=== PATIENT | male | born 1935 | race American Indian/Alaskan Native ===

== ENCOUNTER 2021-10-13 16:14 | Inpatient (IN) | payer MEDICARE ==
--- NOTE | 2021-10-13 18:19 | XRay Report ---
CHEST 2 VIEWS INDICATION / CLINICAL INFORMATION: Chest Pain. COMPARISON: None available. FINDINGS: SUPPORT DEVICES: None. HEART / MEDIASTINUM: No significant abnormality. LUNGS / PLEURA: Mild increased interstitial markings bilaterally may be chronic. No consolidation or effusion. No pneumothorax. ADDITIONAL FINDINGS: There is elevation of the left hemidiaphragm. IMPRESSION: 1. Mild increased interstitial markings within both lungs may be chronic. 2. Elevation of the left hemidiaphragm. Signer Name: Osvaldo Valdez MD Signed: 10/13/2021 6:15 PM Workstation Name: [email or web address]
[2021-10-13 18:54] LABS: Basophils % (Auto) 0.3 % (0.0-1.8); Eosinophils # (Auto) 0.3 K/mm3 (0.0-0.4); Eosinophils % (Auto) 3.5 % (0.0-4.3); Hematocrit 32.9 % (35.5-45.6); Hemoglobin 10.7 gm/dl (11.8-15.2); Lymphocytes # (Auto) 1.8 K/mm3 (1.2-5.4); Lymphocytes % (Auto) 21.1 % (13.4-35.0); Mean Corpuscular HGB Conc 33 % (32-34); Mean Corpuscular Volume 90 fl (84-94); Monocytes % (Auto) 11.2 % (0.0-7.3); Platelet Count 206 K/mm3 (140-440); Red Blood Count 3.66 M/mm3 (3.65-5.03); Red Cell Distribution Width 16.1 % (13.2-15.2)
[2021-10-13 19:03] LABS: INR 0.95 (0.87-1.13)
[2021-10-13 19:05] LABS: Partial Thromboplastin Time 33.9 Sec. (24.2-36.6)
[2021-10-13 19:17] LABS: Albumin 4.6 g/dL (3.9-5); Calcium 10.4 mg/dL (8.4-10.2)
[2021-10-13 19:30] LABS: Chol/HDL Ratio 3.28 %
[2021-10-14] MEDS ORDERED: hydrALAZINE 20 MG/1 ML INJ IV ONE (14:17)
[2021-10-14] MEDS ORDERED: MORPHINE 4 MG/1 ML INJ IV ONE (14:17)
[2021-10-14] MEDS ORDERED: ONDANSETRON 4 MG/2 ML INJ IV ONE (14:17)
--- NOTE | 2021-10-14 14:20 | Emergency Department Report ---
ED General Adult HPI - General Chief complaint: Chest Pain Stated complaint: Abdominal cramping and discomfort Time Seen by Provider: 10/14/21 14:09 Source: patient, RN notes reviewed Mode of arrival: Ambulatory Limitations: No Limitations - History of Present Illness Initial comments: The patient was evaluated in the emergency department for symptoms described in the history of present illness. He/she was evaluated in the context of the global COVID-19 pandemic, which necessitated consideration that the patient might be at risk for infection with the virus that causes COVID-19. Institutional protocols and algorithms that pertain to the evaluation of patients at risk for COVID-19 are in a state of rapid change based on information released by regulatory bodies including the CDC and federal and state organizations. These policies and algorithms were followed during the patient's care in the emergency department. Please note that these policies, procedures and recommendations changed on a rapid basis. Past medical history: Obesity, hypertension, end-stage renal disease on hemodialysis, Monday, , Monday. Last received dialysis on Monday. The patient is a pleasant and cooperative 86-year-old gentleman, who presents to the department today with a complaint of nonspecific abdominal distention, cramping, malaise, weakness, fatigue, and headache. No neck pain. No chest pain. No vomiting or diarrhea. No testicular pain. No urinary symptoms. His rand butter is Dr. Chery. No history of abdominal surgeries that he is aware of. His abdominal cramping is diffuse -: Gradual, days(s) Location: head Radiation: abdomen Quality: aching Improves with: none Worsens with: none - Related Data Allergies Allergy/AdvReac Type Severity Reaction Status Date / Time No Known Allergies Allergy Unverified 10/13/21 17:27 ED Review of Systems ROS: Stated complaint: BLURRY VISION/SWOLLEN ABD/DIZZY Other details as noted in HPI Constitutional: malaise. denies: fever Eyes: denies: eye discharge ENT: denies: epistaxis Respiratory: denies: wheezing Cardiovascular: denies: chest pain Gastrointestinal: abdominal pain. denies: nausea, vomiting, hematemesis, melena, hematochezia Genitourinary: denies: dysuria Neurological: headache. denies: weakness ED Past Medical Hx - Past Medical History Previous Medical History?: Yes Hx Hypertension: Yes - Surgical History Past Surgical History?: No ED Physical Exam - General Limitations: No Limitations General appearance: alert, in no apparent distress, obese - Head Head exam: Present: atraumatic, normocephalic - Eye Eye exam: Present: normal appearance, EOMI. Absent: nystagmus - ENT ENT exam: Present: normal exam, normal orophraynx, mucous membranes moist, normal external ear exam - Neck Neck exam: Present: normal inspection, full ROM. Absent: tenderness, meningismus - Respiratory Respiratory exam: Present: decreased breath sounds. Absent: respiratory distress, wheezes, rales, rhonchi, stridor - Cardiovascular Cardiovascular Exam: Present: regular rate, normal rhythm, normal heart sounds. Absent: bradycardia, tachycardia, irregular rhythm, systolic murmur, diastolic murmur, rubs, gallop - GI/Abdominal GI/Abdominal exam: Present: soft, distended. Absent: tenderness, guarding, rebound, rigid, pulsatile mass - Rectal Rectal exam: Present: deferred - Extremities Exam Extremities exam: Present: normal inspection (Left upper extremity fistula, appropriate thrill, no redness, pus or streaking), full ROM, pedal edema, other (2+ pulses noted in the bilateral upper and lower extremities. There is no palpable cord. negative Homans sign. Muscular compartments are soft. The pelvis is stable.). Absent: calf tenderness - Back Exam Back exam: Present: normal inspection, full ROM. Absent: tenderness, CVA te nderness (R), CVA tenderness (L), paraspinal tenderness, vertebral tenderness - Neurological Exam Neurological exam: Present: alert, oriented X3, normal gait, other (No facial droop. Tongue midline. Extraocular movements intact bilaterally. Facial sensation intact to light touch in V1, V2, V3 distribution bilaterally. 5 and a 5 strength in 4 extremities. Sensation intact to light touch in 4 extremities.). Absent: motor sensory deficit - Psychiatric Psychiatric exam: Present: normal affect, normal mood - Skin Skin exam: Present: warm, dry, intact, normal color. Absent: rash ED Course Vital Signs 10/13/21 17:24 Temperature 98.5 F Pulse Rate 77 Respiratory 18 Rate Blood Pressure 173/84 [Left] O2 Sat by Pulse 99 Oximetry ED Medical Decision Making - Lab Data Result diagrams: 10/13/21 18:12 10/14/21 14:44 Vital Signs 10/13/21 17:24 Temperature 98.5 F Pulse Rate 77 Respiratory 18 Rate Blood Pressure 173/84 [Left] O2 Sat by Pulse 99 Oximetry Lab Results 10/13/21 10/13/21 10/13/21 Range/Units 18:12 18:12 18:12 WBC 8.7 (4.5-11.0) K/mm3 RBC 3.66 (3.65-5.03) M/mm3 Hgb 10.7 L (11.8-15.2) gm/dl Hct 32.9 L (35.5-45.6) % MCV 90 (84-94) fl MCH 29 (28-32) pg MCHC 33 (32-34) % RDW 16.1 H (13.2-15.2) % Plt Count 206 (140-440) K/mm3 Lymph % (Auto) 21.1 (13.4-35.0) % Sanborn % (Auto) 11.2 H (0.0-7.3) % Eos % (Auto) 3.5 (0.0-4.3) % Baso % (Auto) 0.3 (0.0-1.8) % Lymph # (Auto) 1.8 (1.2-5.4) K/mm3 Sanborn # (Auto) 1.0 H (0.0-0.8) K/mm3 Eos # (Auto) 0.3 (0.0-0.4) K/mm3 Baso # (Auto) 0.0 (0.0-0.1) K/mm3 Seg Neutrophils % 63.9 (40.0-70.0) % Seg Neutrophils # 5.6 (1.8-7.7) K/mm3 PT 13.7 (12.2-14.9) Sec. INR 0.95 (0.87-1.13) APTT 33.9 (24.2-36.6) Sec. Sodium 141 (137-145) mmol/L Potassium 4.0 (3.6-5.0) mmol/L Chloride 99.2 (98-107) mmol/L Carbon Dioxide 26 (22-30) mmol/L Anion Gap 20 mmol/L BUN 39 H (9-20) mg/dL Creatinine 7.4 H (0.8-1.3) mg/dL Estimated GFR 9 ml/min BUN/Creatinine Ratio 5 % Glucose 99 (75-100) mg/dL Calcium 10.4 H (8.4-10.2) mg/dL Total Bilirubin 0.30 (0.1-1.2) mg/dL AST 20 (5-40) units/L ALT 12 (7-56) units/L Alkaline Phosphatase 125 (35-129) units/L Troponin T 0.042 H (0.00-0.029) ng/mL Total Protein 6.8 (6.3-8.2) g/dL Albumin 4.6 (3.9-5) g/dL Albumin/Globulin Ratio 2.1 % Triglycerides 131 (2-149) mg/dL Cholesterol 92 (50-199) mg/dL LDL Cholesterol Direct 35 L (50-130) mg/dL HDL Cholesterol 28 L (40-59) mg/dL Cholesterol/HDL Ratio 3.28 % 10/14/21 Range/Units 14:44 WBC (4.5-11.0) K/mm3 RBC (3.65-5.03) M/mm3 Hgb (11.8-15.2) gm/dl Hct (35.5-45.6) % MCV (84-94) fl MCH (28-32) pg MCHC (32-34) % RDW (13.2-15.2) % Plt Count (140-440) K/mm3 Lymph % (Auto) (13.4-35.0) % Sanborn % (Auto) (0.0-7.3) % Eos % (Auto) (0.0-4.3) % Baso % (Auto) (0.0-1.8) % Lymph # (Auto) (1.2-5.4) K/mm3 Sanborn # (Auto) (0.0-0.8) K/mm3 Eos # (Auto) (0.0-0.4) K/mm3 Baso # (Auto) (0.0-0.1) K/mm3 Seg Neutrophils % (40.0-70.0) % Seg Neutrophils # (1.8-7.7) K/mm3 PT (12.2-14.9) Sec. INR (0.87-1.13) APTT (24.2-36.6) Sec. Sodium 140 (137-145) mmol/L Potassium 3.9 (3.6-5.0) mmol/L Chloride 97.6 L (98-107) mmol/L Carbon Dioxide 26 (22-30) mmol/L Anion Gap 20 mmol/L BUN 50 H (9-20) mg/dL Creatinine 7.9 H (0.8-1.3) mg/dL Estimated GFR 8 ml/min BUN/Creatinine Ratio 6 % Glucose 146 H (75-100) mg/dL Calcium 10.1 (8.4-10.2) mg/dL Total Bilirubin (0.1-1.2) mg/dL AST (5-40) units/L ALT (7-56) units/L Alkaline Phosphatase (35-129) units/L Troponin T (0.00-0.029) ng/mL Total Protein (6.3-8.2) g/dL Albumin (3.9-5) g/dL Albumin/Globulin Ratio % Triglycerides (2-149) mg/dL Cholesterol (50-199) mg/dL LDL Cholesterol Direct (50-130) mg/dL HDL Cholesterol (40-59) mg/dL Cholesterol/HDL Ratio % - EKG Data CT head/brain wo con INDICATION: Nonspecific headache and hypertension. TECHNIQUE: CT head. All CT scans at this location are performed using CT dose reduction for ALARA by means of automated exposure control. COMPARISON: None. FINDINGS: Intracranial: Almeida-white matter differentiation is maintained. No intracranial hemorrhage. No extra axial collection. No hydrocephalus. No herniation. Sinuses: Paranasal sinuses and mastoid air cells are essentially clear. Orbits: Globes are intact. Calvarium: No acute fracture. IMPRESSION: 1. No acute intracranial abnormality. Signer Name: Ancelmo Mistry MD Signed: 10/14/2021 2:40 PM Workstation Name: [id number] 10/14/21 18:09 CHEST 2 VIEWS INDICATION / CLINICAL INFORMATION: Chest Pain. COMPARISON: None available. FINDINGS: SUPPORT DEVICES: None. HEART / MEDIASTINUM: No significant abnormality. LUNGS / PLEURA: Mild increased interstitial markings bilaterally may be chronic. No consolidation or effusion. No pneumothorax. ADDITIONAL FINDINGS: There is elevation of the left hemidiaphragm. IMPRESSION: 1. Mild increased interstitial markings within both lungs may be chronic. 2. Elevation of the left hemidiaphragm. Signer Name: Osvaldo Valdez MD Signed: 10/13/2021 5:15 PM Workstation Name: [id number] CT ABDOMEN AND PELVIS WITH CONTRAST INDICATION / CLINICAL INFORMATION: Acute abdominal pain. TECHNIQUE: Axial CT images were obtained through the abdomen and pelvis after IV contrast. All CT scans at this location are performed using CT dose reduction for ALARA by means of automated exposure control. COMPARISON: None available. FINDINGS: LOWER CHEST: Marked elevation of the left hemidiaphragm. Right basilar tree-in-bud opacities are partially visualized which may be due to pneumonia and/or aspiration. LIVER: No significant abnormality. GALLBLADDER: Cholelithiasis within a minimally distended gallb ladder. BILE DUCTS: No significant abnormality. PANCREAS: No significant abnormality. SPLEEN: Incompletely visualized. ADRENALS: Mild enlargement of the left adrenal gland. The right adrenal gland is normal. RIGHT KIDNEY / URETER: A 3.5 x 3.5 x 4.4 cm lesion is seen within the interpolar right kidney which measures at the upper limits of the expected density of a simple cyst. Additional small simple cysts are seen throughout the right kidney. No hydronephrosis. LEFT KIDNEY / URETER: 1.8 x 1.4 x 2.3 cm exophytic mass arising from the posterior interpolar left kidney, concerning for renal cell carcinoma. An additional concerning solid masses seen within the inferior pole of the left kidney measuring 3.1 x 2.7 x 3.0 cm. An additional hypodense lesion measuring up to 4.1 cm arises from the superior aspect of the left kidney and measures to be above the density expected of a simple cyst. Additional simple appearing cysts are scattered throughout the left kidney. No hydronephrosis. STOMACH / SMALL BOWEL: The stomach is incompletely visualized due to left hemidiaphragm elevation. COLON: The splenic flexure colon is incompletely visualized due to marked left hemidiaphragm elevation. APPENDIX: No significant abnormality. PERITONEUM: Trace free fluid within the pelvis, of uncertain etiology. No free air. No fluid collection. LYMPH NODES: No significant adenopathy. AORTA / ARTERIES: Moderate atherosclerotic calcification without acute abnormality. IVC / VEINS: No significant abnormality. URINARY BLADDER: No significant abnormality. REPRODUCTIVE ORGANS: No significant abnormality. ADDITIONAL FINDINGS: None. SKELETAL SYSTEM: Multilevel degenerative changes of the spine. IMPRESSION: 1. Multiple solid left renal masses measuring up to 3.1 cm which are concerning for renal cell carcinoma. Multiple indeterminate hypodense lesions which are above the expected densities of simple cysts are seen within the bilateral kidneys as well. Further evaluation with dedicated renal mass MRI is recommended. 2. Cholelithiasis. 3. Marked elevation of the left hemidiaphragm resulting in incomplete visualization of the spleen, splenic flexure colon, and stomach. 4. Tree-in-bud opacities within the right lower lobe of the lung may be related to pneumonia and/or aspiration. 5. No acute intra-abdominal or pelvic abnormality. Signer Name: Jackson Rosas MD Signed: 10/14/2021 2:56 PM Worksta tion Name: [id number] - Radiology Data Radiology results: pending, report reviewed, image reviewed curb 6 score 2 points Moderate risk group: 6.8% 30-day mortality. Consider inpatient treatment or outpatient with close followup. - Medical Decision Making Differential diagnosis, including but not limited to: Migraine headache, tension headache, cluster headache, end-stage renal disease on hemodialysis, missed dialysis, hypertensive urgency, colitis, diverticulitis, perforated viscus, obstruction, malignancy Assessment and plan: Elderly 86-year-old gentleman complaining of abdominal cramping, with secondary complaint of headache. Given advanced age, obtain CT scan abdomen pelvis. Suggest possible renal cell carcinoma, and right lower lobe pneumonia, possible aspiration. Curb 65 score reviewed and appreciated. Given advanced age, and complaint of headache, obtain CT scan of the brain, which is negative for acute findings. Possible renal cell carcinoma can be followed up as an outpatient. However, patient is a dialysis patient, hypertensive, and has missed his hemodialysis. He also received IV contrast. Contacted nephrology on-call, Dr. Dean. Discussed the patient's history, physical, imaging studies and clinical impression. Nephrology will follow in consultation. Cover empirically with ceftriaxone and azithromycin. Patient agreeable to admission and hospitalization. Endorsed to hospital physician, Dr. Cruz, for further management. Critical care attestation.: If time is entered above; I have spent that time in minutes in the direct care of this critically ill patient, excluding procedure time. ED Disposition Clinical Impression: End stage renal disease on dialysis, Abdominal pain, Hypertensive urgency, Missed dialysis, Headache, Abnormal computed tomography of abdomen and pelvis Disposition: ADMITTED INPATIENT Is pt being admited?: Yes Does the pt Need Aspirin: No Condition: Good
[2021-10-14 15:19] LABS: Calcium 10.1 mg/dL (8.4-10.2)
--- NOTE | 2021-10-14 15:44 | Cat Scan Report ---
CT head/brain wo con INDICATION: Nonspecific headache and hypertension. TECHNIQUE: CT head. All CT scans at this location are performed using CT dose reduction for ALARA by means of automated exposure control. COMPARISON: None. FINDINGS: Intracranial: Almeida-white matter differentiation is maintained. No intracranial hemorrhage. No extra a xial collection. No hydrocephalus. No herniation. Sinuses: Paranasal sinuses and mastoid air cells are essentially clear. Orbits: Globes are intact. Calvarium: No acute fracture. IMPRESSION: 1. No acute intracranial abnormality. Signer Name: Ancelmo Mistry MD Signed: 10/14/2021 3:40 PM Workstation Name: [id number]
--- NOTE | 2021-10-14 16:01 | Cat Scan Report ---
CT ABDOMEN AND PELVIS WITH CONTRAST INDICATION / CLINICAL INFORMATION: Acute abdominal pain. TECHNIQUE: Axial CT images were obtained through the abdomen and pelvis after IV contrast. All CT sc ans at this location are performed using CT dose reduction for ALARA by means of automated exposure c ontrol. COMPARISON: None available. FINDINGS: LOWER CHEST: Marked elevation of the left hemidiaphragm. Right basilar tree-in-bud opacities are part ially visualized which may be due to pneumonia and/or aspiration. LIVER: No significant abnormality. GALLBLADDER: Cholelithiasis within a minimally distended gallbladder. BILE DUCTS: No significant abnormality. PANCREAS: No significant abnormality. SPLEEN: Incompletely visualized. ADRENALS: Mild enlargement of the left adrenal gland. The right adrenal gland is normal. RIGHT KIDNEY / URETER: A 3.5 x 3.5 x 4.4 cm lesion is seen within the interpolar right kidney which m easures at the upper limits of the expected density of a simple cyst. Additional small simple cysts a re seen throughout the right kidney. No hydronephrosis. LEFT KIDNEY / URETER: 1.8 x 1.4 x 2.3 cm exophytic mass arising from the posterior interpolar left ki dney, concerning for renal cell carcinoma. An additional concerning solid masses seen within the infe rior pole of the left kidney measuring 3.1 x 2.7 x 3.0 cm. An additional hypodense lesion measuring u p to 4.1 cm arises from the superior aspect of the left kidney and measures to be above the density e xpected of a simple cyst. Additional simple appearing cysts are scattered throughout the left kidney. No hydronephrosis. STOMACH / SMALL BOWEL: The stomach is incompletely visualized due to left hemidiaphragm elevation. COLON: The splenic flexure colon is incompletely visualized due to marked left hemidiaphragm elevatio n. APPENDIX: No significant abnormality. PERITONEUM: Trace free fluid within the pelvis, of uncertain etiology. No free air. No fluid collecti on. LYMPH NODES: No significant adenopathy. AORTA / ARTERIES: Moderate atherosclerotic calcification without acute abnormality. IVC / VEINS: No significant abnormality. URINARY BLADDER: No significant abnormality. REPRODUCTIVE ORGANS: No significant abnormality. ADDITIONAL FINDINGS: None. SKELETAL SYSTEM: Multilevel degenerative changes of the spine. IMPRESSION: 1. Multiple solid left renal masses measuring up to 3.1 cm which are concerning for renal cell carcin blaise. Multiple indeterminate hypodense lesions which are above the expected densities of simple cysts are seen within the bilateral kidneys as well. Further evaluation with dedicated renal mass MRI is re commended. 2. Cholelithiasis. 3. Marked elevation of the left hemidiaphragm resulting in incomplete visualization of the spleen, sp lenic flexure colon, and stomach. 4. Tree-in-bud opacities within the right lower lobe of the lung may be related to pneumonia and/or a spiration. 5. No acute intra-abdominal or pelvic abnormality. Signer Name: Jackson Rosas MD Signed: 10/14/2021 3:56 PM Workstation Name: [id number]
[2021-10-14] MEDS ORDERED: AZITHROMYCIN/NS 500 MG/250 ML 500 MG/250 ML BAG IV ONE (16:38)
[2021-10-14] MEDS ORDERED: cefTRIAXone/NS 1 GM/50 ML 1 GM/50 ML BAG IV ONE (16:38)
[2021-10-14] MEDS ORDERED: SODIUM CHLORIDE 0.9% 100 ML IV PRN (16:58)
[2021-10-14] MEDS ORDERED: MORPHINE 2 MG/1 ML INJ ONE (17:00)
[2021-10-14] MEDS ORDERED: hydrALAZINE 20 MG/1 ML INJ ONE (17:00)
[2021-10-14] MEDS ORDERED: ONDANSETRON 4 MG/2 ML INJ ONE (17:00)
--- NOTE | 2021-10-14 17:05 | Event Note ---
Discussed with ER , Will order fro HD tomorrow , s/p contrast now stable per HD ordered for am if there is any renal related questions please feel free to call [phone]
--- NOTE | 2021-10-14 18:10 | History and Physical Report ---
History of Present Illness Chief complaint: I do not feel good History of present illness: 86 YO Male with ESRD on HD(T,R,Sa), HTN presents ED for evaluation. Patient reports "I just do not feel good". Patient states that he has experienced abdominal comfort, generalized weakness, fatigue, abdominal cramping, loss of appetite, shortness of breath over the past 1 week with worsening symptoms over the past 2 days. Patient transported to [facility] via private vehicle for further care and evaluation of the aforementioned symptoms. The patient was seen and evaluated in the emergency department. All lab and imaging studies reviewed. Patient remained chest x-ray and was found to have pneumonia. 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 Patient also found to have accelerated hypertension. Patient admitted to medical floor due to increased risk of worsening symptoms and for medical stabilization. Patient initiated on pneumonia protocol. Nephrology team consulted in ED for dialysis. Patient denies fever, chills, chest pain, palpitation, productive cough, skin rash, recent contact, known exposure to COVID-19. No prior admission for review. No medication listed at time of admission for reconciliation. Advanced care planning conducted in ED. Past History Past Medical History: ESRD, hypertension Past Surgical History: Other (Dialysis access) Social history: single. denies: smoking, alcohol abuse, prescription drug abuse Family history: denies: hypertension Medications and Allergies Allergies Allergy/AdvReac Type Severity Reaction Status Date / Time No Known Allergies Allergy Unverified 10/13/21 17:27 Active Meds: Active Medications Azithromycin (Zithromax/Ns) 500 mg in 250 mls @ 250 mls/hr IV ONCE ONE; Protocol Stop: 10/14/21 17:37 Sodium Chloride (Nacl 0.9%) 100 mls @ 999 mls/hr IV TIFFANIE PRN PRN Reason: Hypotension Review of Systems Constitutional: no weight loss, no weight gain, no fever, no chills Ears, nose, mouth and throat: no ear pain, no tinnitis, no decreased hearing, no nasal congestion, no sinus pressure Cardiovascular: no chest pain, no orthopnea, no rapid/irregular heart beat, no edema, no lightheadedness Respiratory: no cough, no cough with sputum Gastrointestinal: no abdominal pain, no vomiting, no diarrhea, no constipation Genitourinary Male: no hematuria, no flank pain, no discharge, no urinary frequency, no urinary hesitancy Rectal: no pain, no incontinence, no bleeding Musculoskeletal: no neck stiffness, no shooting arm pain, no arm numbness/tingling, no low back pain, no shooting leg pain Integumentary: no rash, no pruritis, no sores, no wounds Neurological: no head injury, no paralysis, no parathesias, no tingling, no syncope Psychiatric: no anxiety, no change in sleep habits, no insomnia, no hypersomnia, no change in appetite, no change in libido, no suicidal ideation Endocrine: no cold intolerance, no polyphagia, no polydipsia, no nocturia, no excessive sweating Hematologic/Lymphatic: no easy bruising, no easy bleeding Allergic/Immunologic: no urticaria, no allergic rhinitis, no wheezing Exam - Constitutional Vitals: Temp Pulse Resp BP Pulse Ox 98.5 F 77 18 173/84 99 10/13/21 17:24 10/13/21 17:24 10/13/21 17:24 10/13/21 17:24 10/13/21 17:24 General appearance: Present: mild distress - EENT Eyes: Present: PERRL ENT: hearing intact, clear oral mucosa - Neck Neck: Present: supple, normal ROM - Respiratory Respiratory effort: normal Respiratory: bilateral: CTA - Cardiovascular Heart Sounds: Present: S1 & S2. Absent: rub, click - Extremities Extremities: pulses symmetrical, No edema Peripheral Pulses: within normal limits - Abdominal General gastrointestinal: Present: soft, non-tender, non-distended, normal bowel sounds Male genitourinary: Present: normal - Integumentary Integumentary: Present: clear, warm, dry - Musculoskeletal Musculoskeletal: gait normal, strength equal bilaterally - Psychiatric Psychiatric: appropriate mood/affect, intact judgment & insight - Neurologic Neurologic: CNII-XII intact, moves all extremities HEART Score - HEART Score Troponin: Troponin T 0.042 ng/mL (0.00-0.029) H 10/13/21 18:12 Results - Labs CBC & Chem 7: 10/13/21 18:12 10/14/21 14:44 Labs: Abnormal lab results 08/31/22 08/31/22 09/01/22 Range/Units 18:12 18:12 14:44 Hgb 10.7 L (11.8-15.2) gm/dl Hct 32.9 L (35.5-45.6) % RDW 16.1 H (13.2-15.2) % [place] % (Auto) 11.2 H (0.0-7.3) % [place] # (Auto) 1.0 H (0.0-0.8) K/mm3 Chloride 97.6 L (98-107) mmol/L BUN 39 H 50 H (9-20) mg/dL Creatinine 7.4 H 7.9 H (0.8-1.3) mg/dL Glucose 146 H (75-100) mg/dL Calcium 10.4 H (8.4-10.2) mg/dL Troponin T 0.042 H (0.00-0.029) ng/mL LDL Cholesterol Direct 35 L (50-130) mg/dL HDL Cholesterol 28 L (40-59) mg/dL Assessment and Plan - Patient Problems (1) Pneumonia Current Visit: Yes Status: Acute Plan to address problem: Pneumonia protocol: Chest x-ray, CBC, CMP, supplemental oxygen, pulse oximetry, nebulizer therapy, IV antibiotic therapy, (2) End stage renal disease Current Visit: Yes Status: Acute Plan to address problem: Nephrology team consulted in ED, dialysis as per renal team. (3) Accelerated hypertension Current Visit: Yes Status: Acute Plan to address problem: Monitor blood pressure every shift, continue medical management. (4) Renal cell carcinoma Current Visit: Yes Status: Acute Qualifiers: Laterality: left Qualified Code(s): C64.2 - Malignant neoplasm of left kidney, except renal pelvis Plan to address problem: Nephrology team consulted. CT scan abdomen pelvis, interventional radiology team consulted for biopsy of left renal mass. 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 Suspicious for malignancy. Nephrology team consulted. Outpatient oncology follow-up. (6) DVT prophylaxis Current Visit: Yes Status: Acute Plan to address problem: SCD to bilateral lower extremities while in bed (7) Advance care planning Current Visit: Yes Status: Acute Plan to address problem: Disease education conducted, care plan discussed, diagnoses discussed, prognosis discussed, patient is full code. Patient acknowledges understanding and agreement with care plan, +30 minutes. (8) Preventative health care Current Visit: Yes Status: Acute Plan to address problem: Patient counseled regarding risk factor reduction, home safety precautions, outpatient follow-up with primary care physician for all age and risk factor appropriate screening test. +30 minutes.
[2021-10-14] MEDS ORDERED: HYDROmorphone 0.5 MG/0.5 ML INJ IV PRN (18:26)
[2021-10-14] MEDS ORDERED: oxyCODONE /ACETAMINOPHEN 5-325MG TAB PO PRN (18:26)
[2021-10-14] MEDS ORDERED: ACETAMINOPHEN 325 MG TAB PO PRN (18:26)
[2021-10-14] MEDS ORDERED: ALBUTEROL 2.5 MG/3 ML NEBU IH PRN (18:26)
[2021-10-14] MEDS ORDERED: ONDANSETRON 4 MG/2 ML INJ IV PRN (18:26)
[2021-10-14 18:50] LABS: Hepatitis B Surface Antigen Non-Reactive (Negative); Hepatitis C Virus Antibody Non-Reactive (NonReactive)
[2021-10-15 07:45] LABS: Calcium 9.4 mg/dL (8.4-10.2)
--- NOTE | 2021-10-15 08:42 | Consultation ---
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 Chery If there are any renal related issues in regards to this patient please feel free to reach out without any hesitation at [phone] We'll continue to follow and make recommendation for renal standpoint. History of present illness Patient is 86-year-old male who is unassigned as far as dialysis is concerned came to the hospital with complaints of abdominal pain, case discussed with emergency room physician, patient did receive IV contrast this admission hence the need for renal placement therapy which has been ordered, is currently e stablished with Dr. 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 Bone mineral disorder Secondary hyperparathyroidism Hypertension Current allergies: Reviewed from the current chart Social history: Reviewed from the current chart Family history: Reviewed from the current chart Review of system: Positive for admitted with abdominal pain, cramping, All other review of systems negative Physical examination Vitals: Reviewed General: No acute distress HEENT: Oral mucosa moist no pallor or icterus Neck: Supple without any JVD thyromegaly or nodular mass Chest: Clear to auscultation Heart: Regular rate and rhythm S1-S2 heard no S3-S4 Abdomen: Soft nontender, bowel sounds present no renal bruit no suprapubic masses no CVA tenderness noted Extremity: Minimal edema dry skin no peripheral cyanosis Endocrine: Thyroid not enlarged Psychiatric: No agitation and aggression noted Musculoskeletal: No joint effusion noted Labs and x-rays: Reviewed from this admission Past History Past Medical History: ESRD, hypertension Past Surgical History: Other (Dialysis access) Social history: single. denies: smoking, alcohol abuse, prescription drug abuse Family history: denies: hypertension Medications and Allergies Allergies Allergy/AdvReac Type Severity Reaction Status Date / Time No Known Allergies Allergy Unverified 10/13/21 17:27 Home Medications Medication Instructions Recorded Confirmed Last Taken Type No Known Home Medications [No 10/15/21 10/15/21 Unknown History Reported Home Medications] Active Meds: Active Medications Acetaminophen (Acetaminophen 325 Mg Tab) 650 mg PO Q4H PRN PRN Reason: Pain MILD(1-3)/Fever >100.5/KEITA Albuterol (Albuterol 2.5 Mg/3 Ml Nebu) 2.5 mg IH Q4HRT PRN PRN Reason: Shortness Of Breath Hydromorphone HCl (Hydromorphone 0.5 Mg/0.5 Ml Inj) 0.5 mg IV Q3H PRN PRN Reason: Pain , Severe (7-10) Sodium Chloride (Nacl 0.9%) 100 mls @ 999 mls/hr IV TIFFANIE PRN PRN Reason: Hypotension Ondansetron HCl (Ondansetron 4 Mg/2 Ml Inj) 4 mg IV Q8H PRN PRN Reason: Nausea And Vomiting Oxycodone/Acetaminophen (Oxycodone /Acetaminophen 5-325mg Tab) 1 tab PO Q6H PRN PRN Reason: Pain, Moderate (4-6) Sodium Chloride (Sodium Chloride 0.9% 10 Ml Flush Syringe) 10 ml IV BID JIMMY Last Admin: 10/14/21 23:47 Dose: 10 ml Sodium Chloride (Sodium Chloride 0.9% 10 Ml Flush Syringe) 10 ml IV PRN PRN PRN Reason: LINE FLUSH Exam - Vital Signs Vital signs: Vital Signs Temp Pulse Resp BP Pulse Ox 98.5 F 77 18 173/84 99 10/13/21 17:24 10/13/21 17:24 10/13/21 17:24 10/13/21 17:24 10/13/21 17:24 Results - Lab Results 10/13/21 18:12 10/15/21 06:56 Most recent lab results Calcium 9.4 mg/dL (8.4-10.2) 10/15/21 06:56
--- NOTE | 2021-10-15 09:34 | Progress Note ---
Assessment and Plan Assessment and plan: 86 YO Male with ESRD on HD(T,R,Sa), HTN presents ED for evaluation of generalized weakness, fatigue, abdominal cramping, loss of appetite, shortness of breath over the past 1 week. Patient's chest x-ray and was found to have pneumonia. Patient underwent CT scan of the abdomen and pelvis and was also f ound to have left renal mass this is suspicious for renal cell carcinoma as well as paraneoplastic syndrome with elevation of the left hemidiaphragm. Patient also found to have hypertensive urgency. 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 We will consult urology for probable renal cell carcinoma. Continue IV antibiotics for bilateral pneumonia. Continue medications for BP control. Continue hemodialysis per nephrology recommendations. History Interval history: No new issues Hospitalist Physical - Constitutional Vitals: Temp Pulse Resp BP Pulse Ox 97.7 F 87 18 143/75 95 10/15/21 03:42 10/15/21 03:42 10/15/21 03:42 10/15/21 03:42 10/15/21 03:42 General appearance: Present: mild distress - EENT Eyes: Present: PERRL, EOM intact ENT: hearing intact, clear oral mucosa, dentition normal - Neck Neck: Present: supple, normal ROM - Respiratory Respiratory effort: normal Respiratory: bilateral: CTA - Cardiovascular Rhythm: regular Heart Sounds: Present: S1 & S2. Absent: gallop, rub - Extremities Extremities: no ischemia, No edema, Full ROM - Abdominal General gastrointestinal: soft, non-tender, non-distended, normal bowel sounds - Integumentary Integumentary: Present: clear, warm, dry - Neurologic Neurologic: CNII-XII intact, moves all extremities HEART Score - HEART Score Troponin: Troponin T 0.042 ng/mL (0.00-0.029) H 10/13/21 18:12 Results - Labs CBC & Chem 7: 10/13/21 18:12 10/15/21 06:56 Labs: Laboratory Last Values WBC 8.7 K/mm3 (4.5-11.0) 10/13/21 18:12 RBC 3.66 M/mm3 (3.65-5.03) 10/13/21 18:12 Hgb 10.7 gm/dl (11.8-15.2) L 10/13/21 18:12 Hct 32.9 % (35.5-45.6) L 10/13/21 18:12 MCV 90 fl (84-94) 10/13/21 18:12 MCH 29 pg (28-32) 10/13/21 18:12 MCHC 33 % (32-34) 10/13/21 18:12 RDW 16.1 % (13.2-15.2) H 10/13/21 18:12 Plt Count 206 K/mm3 (140-440) 10/13/21 18:12 Lymph % (Auto) 21.1 % (13.4-35.0) 10/13/21 18:12 [place] % (Auto) 11.2 % (0.0-7.3) H 10/13/21 18:12 Eos % (Auto) 3.5 % (0.0-4.3) 10/13/21 18:12 Baso % (Auto) 0.3 % (0.0-1.8) 10/13/21 18:12 Lymph # (Auto) 1.8 K/mm3 (1.2-5.4) 10/13/21 18:12 [place] # (Auto) 1.0 K/mm3 (0.0-0.8) H 10/13/21 18:12 Eos # (Auto) 0.3 K/mm3 (0.0-0.4) 10/13/21 18:12 Baso # (Auto) 0.0 K/mm3 (0.0-0.1) 10/13/21 18:12 Seg Neutrophils % 63.9 % (40.0-70.0) 10/13/21 18:12 Seg Neutrophils # 5.6 K/mm3 (1.8-7.7) 10/13/21 18:12 PT 13.7 Sec. (12.2-14.9) 10/13/21 18:12 INR 0.95 (0.87-1.13) 10/13/21 18:12 APTT 33.9 Sec. (24.2-36.6) 10/13/21 18:12 Sodium 142 mmol/L (137-145) 10/15/21 06:56 Potassium 4.2 mmol/L (3.6-5.0) 10/15/21 06:56 Chloride 101.0 mmol/L (98-107) 10/15/21 06:56 Carbon Dioxide 26 mmol/L (22-30) 10/15/21 06:56 Anion Gap 19 mmol/L 10/15/21 06:56 BUN 55 mg/dL (9-20) H 10/15/21 06:56 Creatinine 8.5 mg/dL (0.8-1.3) H 10/15/21 06:56 Estimated GFR 7 ml/min 10/15/21 06:56 BUN/Creatinine Ratio 6 % 10/15/21 06:56 Glucose 91 mg/dL (75-100) 10/15/21 06:56 Lactic Acid 0.90 mmol/L (0.7-2.0) 10/14/21 18:08 Calcium 9.4 mg/dL (8.4-10.2) 10/15/21 06:56 Total Bilirubin 0.30 mg/dL (0.1-1.2) 10/13/21 18:12 AST 20 units/L (5-40) 10/13/21 18:12 ALT 12 units/L (7-56) 10/13/21 18:12 Alkaline Phosphatase 125 units/L (35-129) 10/13/21 18:12 Troponin T 0.042 ng/mL (0.00-0.029) H 10/13/21 18:12 Total Protein 6.8 g/dL (6.3-8.2) 10/13/21 18:12 Albumin 4.6 g/dL (3.9-5) 10/13/21 18:12 Albumin/Globulin Ratio 2.1 % 10/13/21 18:12 Triglycerides 131 mg/dL (2-149) 10/13/21 18:12 Cholesterol 92 mg/dL (50-199) 10/13/21 18:12 LDL Cholesterol Direct 35 mg/dL (50-130) L 10/13/21 18:12 HDL Cholesterol 28 mg/dL (40-59) L 10/13/21 18:12 Cholesterol/HDL Ratio 3.28 % 10/13/21 18:12 Hepatitis A IgM Ab Non-reactive (NonReactive) 10/14/21 18:08 Hep Bs Antigen Non-reactive (Negative) 10/14/21 18:08 Hep B Core IgM Ab Non-reactive (NonReactive) 10/14/21 18:08 Hepatitis C Antibody Non-reactive (NonReactive) 10/14/21 18:08 Microbiology: Microbiology 10/14/21 18:08 Peripheral/Venous Blood Culture - Preliminary Culture in Progress 10/14/21 18:08 Peripheral/Venous Blood Culture - Preliminary Culture in Progress Hoffmann/IV: Voiding Method Urinal Active Medications - Current Medications Current Medications: Generic Name Dose Route Start Last Admin Trade Name Freq PRN Reason Stop Dose Admin Acetaminophen 650 mg 10/14/21 18:26 Acetaminophen 325 Mg Tab PO Q4H PRN Pain MILD(1-3)/Fever >100.5/KEITA Albuterol 2.5 mg 10/14/21 18:26 Albuterol 2.5 Mg/3 Ml Nebu IH Q4HRT PRN Shortness Of Breath Hydromorphone HCl 0.5 mg 10/14/21 18:26 Hydromorphone 0.5 Mg/0.5 Ml Inj IV Q3H PRN Pain , Severe (7-10) Sodium Chloride 100 mls @ 999 mls/hr 10/14/21 16:58 Nacl 0.9% IV TIFFANIE PRN Hypotension Ondansetron HCl 4 mg 10/14/21 18:26 Ondansetron 4 Mg/2 Ml Inj IV Q8H PRN Nausea And Vomiting Oxycodone/Acetaminophen 1 tab 10/14/21 18:26 Oxycodone /Acetaminophen 5-325mg Tab PO Q6H PRN Pain, Moderate (4-6) Sodium Chloride 10 ml 10/14/21 22:00 10/15/21 09:07 Sodium Chloride 0.9% 10 Ml Flush Syringe IV 10 ml BID JIMMY Administration Sodium Chloride 10 ml 10/14/21 18:26 Sodium Chloride 0.9% 10 Ml Flush Syringe IV PRN PRN LINE FLUSH
--- NOTE | 2021-10-15 13:26 | Electrocardiograph Report ---
[facility] Test Date: 2021-10-13 Test Time: 17:31:12 Pat Name: KIRSTIN FRANKLIN Department: Room: A367 Gender: M Channel [employer] Program Manager: AF : [id number] Requested By: ED DOC Order Number: [id number] Reading MD: Faye Alvarez Measurements Intervals [place] Rate: 77 P: 46 ID: [id number] QRS: -18 QRSD: 125 T: 92 QT: 409 QTc: 464 Interpretive Statements Sinus rhythm LVH WITH SECONDARY REPOLARIZATION ABNORMALITY No previous ECG available for comparison Electronically Signed On 10-15-2021 13:26:22 EDT by Faye Alvarez
[2021-10-15 14:31] VITALS: BP 158/81
--- NOTE | 2021-10-15 17:39 | Consultation ---
History of Present Illness - Reason for Consult Consult date: 10/15/21 - History of Present Illness NEW TO OUR SERVICE Patient is 86-year-old male who is unassigned as far as dialysis is concerned came to the hospital with complaints of abdominal pain, case discussed with emergency room physician, patient did receive IV contrast this admission hence the need for renal placement therapy which has been ordered, is currently established with Dr. Thomas who does not provide services here. CT scan obtained this admission shows multiple solid left renal masses up to 3.1 cm concerning for renal cell cancer as well as possible pneumonia ABD SOFT A/P RENAL MASSES RENAL FAILURE ON DIALYSIS WILL SEE IF PREVIOUS IMAGING DONE ELSEWHERE (DR. THOMAS) WILL NEED OUT PT WVAL OF KIDNEYS----NOT CAUSE OF PAIN Past History Past Medical History: ESRD, hypertension Past Surgical History: Other (Dialysis access) Social history: single. denies: smoking, alcohol abuse, prescription drug abuse Family history: denies: hypertension Medications and Allergies Allergies Allergy/AdvReac Type Severity Reaction Status Date / Time No Known Allergies Allergy Unverified 10/13/21 17:27 Home Medications Medication Instructions Recorded Confirmed Last Taken Type No Known Home Medications [No 10/15/21 10/15/21 Unknown History Reported Home Medications] Active Meds: Active Medications Acetaminophen (Acetaminophen 325 Mg Tab) 650 mg PO Q4H PRN PRN Reason: Pain MILD(1-3)/Fever >100.5/KEITA Albuterol (Albuterol 2.5 Mg/3 Ml Nebu) 2.5 mg IH Q4HRT PRN PRN Reason: Shortness Of Breath Azithromycin (Azithromycin 250 Mg Tab) 500 mg PO QPM JIMMY Stop: 10/18/21 18:01 Hydromorphone HCl (Hydromorphone 0.5 Mg/0.5 Ml Inj) 0.5 mg IV Q3H PRN PRN Reason: Pain , Severe (7-10) Sodium Chloride (Nacl 0.9%) 100 mls @ 999 mls/hr IV TIFFANIE PRN PRN Reason: Hypotension Ceftriaxone Sodium (Rocephin/Ns 2 Gm/100 Ml) 2 gm in 100 mls @ 200 mls/hr IV Q24H JIMMY Stop: 10/18/21 23:59 Ondansetron HCl (Ondansetron 4 Mg/2 Ml Inj) 4 mg IV Q8H PRN PRN Reason: Nausea And Vomiting Oxycodone/Acetaminophen (Oxycodone /Acetaminophen 5-325mg Tab) 1 tab PO Q6H PRN PRN Reason: Pain, Moderate (4-6) Sodium Chloride (Sodium Chloride 0.9% 10 Ml Flush Syringe) 10 ml IV BID JIMMY Last Admin: 10/15/21 09:07 Dose: 10 ml Sodium Chloride (Sodium Chloride 0.9% 10 Ml Flush Syringe) 10 ml IV PRN PRN PRN Reason: LINE FLUSH Exam - Constitutional Vitals: Temp Pulse Resp BP Pulse Ox 98.4 F 81 20 158/81 98 10/15/21 14:25 10/15/21 14:25 10/15/21 14:25 10/15/21 14:25 10/15/21 14:25 Results - Labs CBC & Chem 7: 10/13/21 18:12 10/15/21 06:56 Labs: Abnormal lab results 10/15/21 Range/Units 06:56 BUN 55 H (9-20) mg/dL Creatinine 8.5 H (0.8-1.3) mg/dL
[2021-10-15] MEDS ORDERED: cefTRIAXone/NS 2 GM/100 ML 2 GM/100 ML BAG IV SCH (18:00)
[2021-10-15] MEDS ORDERED: AZITHROMYCIN 250 MG TAB PO SCH (18:00)
--- NOTE | 2021-10-18 11:59 | Discharge Summary ---
Providers - Providers Date of Admission: 10/14/21 18:26 Date of discharge: 10/15/21 Attending physician: JULIA JACOBSEN 10/14/21 14:18 Consult to Physician [CONS] Stat Comment: Consulting Provider: WILBUR POLK Physician Instructions: Reason For Exam: esrd htn s/p iv contrast 10/14/21 18:51 Consult to Interventional Radiology [CONS] Routine Consulting Provider: BAY ALLEN Reason For Exam: Biopsy of left renal mass Notified:: in am Hospitalization Condition: Good Hospital course: 86 YO Male with ESRD on HD(T,R,Sa), HTN presents ED for evaluation of generalized weakness, fatigue, abdominal cramping, loss of appetite, shortness of breath over the past 1 week. Patient's chest x-ray and was found to have pneumonia. 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 Patient also found to have hypertensive urgency. Bilateral pneumonia ESRD Hypertensive urgency Renal cell carcinoma Paraneoplastic syndrome Hospital course: 10/15/2021. Consulted urology for probable renal cell carcinoma. Urology reports that patient should have outpatient eval of kidneys and believes that this is not the cause of the abdominal pain. Continue IV antibiotics for bilateral pneumonia. Continue medications for BP control. Continue hemodialysis per nephrology recommendations. The patient was to continue with treatment for the pneumonia but left AMA. Dedicated discharge time 32 minutes Disposition: LEFT AGAINST MEDICAL ADVICE Final Discharge Diagnosis (Prints w/discharge instructions): Bilateral pneumonia. ESRD. Hypertensive urgency. Renal cell carcinoma. Paraneoplastic syndrome Core Measure Documentation - Palliative Care Palliative Care/ Comfort Measures: Not Applicable - Core Measures Any of the following diagnoses?: none Exam - Constitutional Vitals: Temp Pulse Resp BP Pulse Ox 98.4 F 81 20 158/81 98 10/15/21 14:25 10/15/21 14:25 10/15/21 14:25 10/15/21 14:25 10/15/21 14:25 General appearance: Present: no acute distress, well-nourished - EENT Eyes: Present: PERRL ENT: hearing intact, clear oral mucosa - Neck Neck: Present: supple, normal ROM - Respiratory Respiratory effort: normal Respiratory: bilateral: CTA - Cardiovascular Heart Sounds: Present: S1 & S2. Absent: rub, click - Extremities Extremities: pulses symmetrical, No edema Peripheral Pulses: within normal limits - Abdominal General gastrointestinal: Present: soft, non-tender, non-distended, normal bowel sounds Male genitourinary: Present: normal - Integumentary Integumentary: Present: clear, warm, dry - Musculoskeletal Musculoskeletal: gait normal, strength equal bilaterally - Psychiatric Psychiatric: appropriate mood/affect, intact judgment & insight - Neurologic Neurologic: CNII-XII intact, moves all extremities Plan Follow up with: RIGOBERTO LOMAX [Other] - 3-5 Days
== END 2021-10-15 18:00 | disposition left against medical advice (07) | DRG 193 ==
LOC: ED 16:14 → 3A 10-14 18:26
PROVIDERS: ADMIT Internal Medicine; ATTEND Hospitalist
PROC: 5A1D70Z Performance of Urinary Filtration, Intermittent, Less than 6 Hours Per Day (ICD-10-PCS; principal; 2021-10-15)
DX: J18.9 Pneumonia, unspecified organism (principal); N18.6 End stage renal disease; C64.2 Malignant neoplasm of left kidney, except renal pelvis; I12.0 Hypertensive chronic kidney disease with stage 5 chronic kidney disease or end stage renal disease; E46 Unspecified protein-calorie malnutrition; Z99.2 Dependence on renal dialysis; E66.9 Obesity, unspecified; I16.0 Hypertensive urgency; E83.52 Hypercalcemia; G13.1 Other systemic atrophy primarily affecting central nervous system in neoplastic disease; Z53.29 Procedure and treatment not carried out because of patient's decision for other reasons; Z68.29 Body mass index [BMI] 29.0-29.9, adult
CPT/HCPCS: 36415; 70450; 71046; 74177; 80048; 80053; 80061; 80074; 82140; 84484; 85025; 85610; 85730; 87040; 93005; G0378; J0360; J0456; J0696; J2270; J2405; Q9967